=== PATIENT | female | born 1980 | race Hispanic/Latino ===

== ENCOUNTER 2018-04-29 06:31 | Day surgery (SDC) | payer BC ==
[2018-04-29 06:49] VITALS: BMI 23.9
[2018-04-29] MEDS ORDERED: Bupivacaine HCl 0.25% PF (30 ml) Inj ONE ×2 (07:09→09:02)
[2018-04-29] MEDS ORDERED: Silver Nitrate Topical - Stick ONE (07:14)
[2018-04-29] MEDS ORDERED: Chlorhexidine Gluconate 2OZ GEL TP ONE (07:14)
[2018-04-29] MEDS ORDERED: Lactated Ringer's 1,000 ML IV ONE ×4 (07:48→11:30)
[2018-04-29] MEDS ORDERED: Phenylephrine 10 mg/ml Inj ONE (08:04)
[2018-04-29] MEDS ORDERED: Lidocaine 4% (Laryng-O-Jet) Kit MM ONE (08:04)
[2018-04-29] MEDS ORDERED: Succinylcholine 200 mg/10 ml Inj IV ONE (08:04)
[2018-04-29] MEDS ORDERED: Propofol 10 mg/ml Inj (20 ML) ONE (08:04)
[2018-04-29] MEDS ORDERED: Neostigmine 1:1000 (1 mg/ml) Inj ONE ×2 (08:04→08:13)
[2018-04-29] MEDS ORDERED: Rocuronium 10 mg/ml (5 ml) ONE (08:04)
[2018-04-29 08:07] LABS: HEMOGLOBIN 12.1 g/dL (12.0-16.0); MEAN CELL VOLUME 97.1 fl (81.0-99.0); MEAN CORPUSCULAR HEMOGLOBIN 32.9 pg (27.0-31.0); MEAN CORPUSCULAR HGB CONC 33.8 g/dL (33.0-37.0); RBC 3.67 Mil/uL (3.80-5.20); RED CELL DISTRIBUTION WIDTH 12.8 % (11.5-14.5)
[2018-04-29] MEDS ORDERED: Ropivacaine 0.5% 30ML IV ONE (08:12)
[2018-04-29] MEDS ORDERED: Lidocaine 2% Jelly (Uro-Jet) ONE (08:32)
[2018-04-29] MEDS ORDERED: Midazolam 2 MG/2 ML VIAL ONE (08:37)
[2018-04-29] MEDS ORDERED: Dexamethasone 4 mg/1 ml ONE (08:57)
[2018-04-29] MEDS ORDERED: Desflurane Inhalation Anesthetic Liq (240 ml) ONE (10:03)
[2018-04-29] MEDS ORDERED: Lactated Ringer's 1,000 ML IV SCH (10:45)
--- NOTE | 2018-04-29 10:50 | PCM.ANESB5 ---
Transverse Abdominis Block - Transverse Abdominis Plane Date of Procedure: 04/29/18 Anesthesiologist: Steve Pre-Procedure Diagnosis: Endometriosis Post-Procedure Diagnosis: Same Procedure Performed: Transverse Abdominis Plane Nerve Block Left, Transverse Abdominis Plane Nerve Block Right - Procedure Transverse Abdominis Plane Nerve Block: The procedure was explained to the patient that it is for post-operative pain management and would be performed after surgery. Consent was obtained prior to surgery after a thorough discussion with the patient regarding the benefits and possible complications of transverse abdominis plane block. After the surgery had concluded and before the patient emerged from general anesthesia, time-out was held with the circulating nurse to re-confirm the appropriate block. With the patient in supine position, the ultrasound probe was placed transverse to the abdominal wall at the mid-axillary line above the iliac crest of the appropriate side. The skin, subcutaneous tissue, fat, external oblique muscle, internal oblique muscle, and the transverse abdominis muscle were identified. The general area of the block site was then prepped with Betadine three times. At this point, a # 21-gauge Stimuplex 4-inch needle was inserted posterior to and in plane with the ultrasound probe and directed anteriorly. Needle was advanced under direct ultrasound visualization until it reached the plane between the internal oblique and transverse abdominis muscles. After appropriate placement, 2mL of local anesthetic solution was injected. When the transverse abdominis plane was observed expanding in an ellipsoid way, the rest of the solution was slowly injected. A total of __30____ mL of _0.25___ % __ bupivicaine with 1:200,000 epinephrine was used for this block. The needle was then removed and sterile dressing was applied. Similarly, the same procedure was performed on the other side using the same medications. The patient had stable vital signs throughout and had no untoward complications after emergence from general anesthesia in the recovery room.
[2018-04-29] MEDS ORDERED: Oxycodone/Acetaminophen 5/325 mg Tab PO PRN (11:02)
[2018-04-29] MEDS: HYDROmorphone 0.5 mg/0.5 ml ISec IVP PRN ×3 (11:05→11:18)
[2018-04-29 13:06] VITALS: RESP 18
--- NOTE | 2018-04-29 16:52 | OP ---
PROCEDURE DATE: 04/29/2018 SURGEON: Dwayne Fernandez MD ASSISTED BY: Thong Mckeon MD from General Surgery. PREOPERATIVE DIAGNOSES: Dysmenorrhea, dyspareunia, rule out pelvic endometriosis. POSTOPERATIVE DIAGNOSIS: Pelvic endometriosis, stage III. PROCEDURE PERFORMED: Cystoscopy with bilateral ureteral catheterization and injection of IC-Green dye, diagnostic hysteroscopy, robotic da Radha operative laparoscopy, excision of endometriosis, and bilateral ureterolysis. ANESTHESIA: General endotracheal. ESTIMATED BLOOD LOSS: Minimal. COMPLICATIONS: None. SAMPLES: Multiple samples from the left pelvic sidewall, left ovarian fossa, right pelvic sidewall, posterior cervical and right uterosacral sent to Pathology. INDICATION FOR THE PROCEDURE: The patient is a 37-year-old with clinical signs of endometriosis resistant to medical therapy. She was counseled prior to the surgery with regards to the risks and benefits of the procedure and with the likelihood that the procedure to ameliorate her problems. She signed the consent and was taken to the OR. DESCRIPTION OF PROCEDURE: After adequate anesthesia was obtained, the patient was placed in the dorsal lithotomy position with extreme care to proper placement with avoiding hyperflexion or hyperextension of the hips. At this point, the patient was prepped and draped and the surgeon gowned and gloved. A time-out was taken according to the hospital policy and the procedure was started. A cystoscope was inserted directly into the bladder. The bladder appeared to be in normal size without presence of stones, tumors, or any other lesions. Both ureters were in their normal anatomical position. A 5-Emirati open-ended catheter was inserted into the left ureteral ostia all the way to the distal ureter and 5 mL of IC-Green were then injected. The catheter was then withdrawn. Attention was then on the contralateral ureter, which was catheterized with a 5-Emirati open-ended catheter and 5 mL of IC-Green were injected in the contralateral ureter. At this point, the stent and the cystoscope were removed and it was replaced by a 16-Emirati Ambriz. Attention was on the vaginal area where a speculum was placed in the vagina. The anterior lip of the cervix was grasped and the cervix was gently dilated. The hysteroscope was inserted into the cavity. The uterine cavity was visualized and it appeared to be free of tumors, lesions, or any other inflammatory changes. At this point, the attention was on the abdomen, where after re-gowning and re-gloving, an incision was made on the umbilicus utilizing open laparoscopy technique. The fascia was incised and the peritoneum was entered in a blunt fashion, a cannula was then placed, and the abdomen was insufflated. Under direct visualization, three additional ports were injected in the left upper quadrant, left mid quadrant, and the right upper quadrant. The da Radha Xi robot was then docked and the procedure was started. The findings in the pelvis were as follows: The bladder reflection was normal. The upper abdomen was normal. The liver was normal. There were implants of endometriosis in the left pelvic sidewall, posterior cervix, and right pelvic sidewall. They were all black, white type, and red type endometriosis-type implants. At this point, attention was on the left hand side where after elevating the ovary, the peritoneum was entered, the retroperitoneal space was entered and a progressive dissection was performed medializing the peritoneum and lateralizing the ureter with a full dissection, and bringing down the peritoneum all the way with the inferior level of the excision being on the left uterosacral ligament. Attention was now on the posterior cervix where a transverse incision was made on the posterior aspect of the uterus and the peritoneum was then dissected off opening the rectal vaginal space without injuring the vagina or the rectum. An area of peritoneum containing endometriosis was then excised. At this point, attention was on the right hand side of the pelvis, where after elevating the right ovary, the ureter was identified utilizing robotic technology. The peritoneum was then entered and a progressive dissection was performed, lateralizing the peritoneum and dissecting the ureter and obtaining an area of peritoneum containing endometriosis. At this point, the hemostasis appeared to be excellent. The J-Plasma device was brought in and areas with inflammatory changes, not with endometriosis, but just with inflammatory changes were then ablated, ablating areas of peritoneum, both in the posterior aspect of the uterus, cul-de-sac, and pelvic sidewalls. After this was done, it was checked for hemostasis and appeared to be excellent. The da Radha robot was undocked. The instruments were removed. The abdomen was desufflated. The incisions were closed with 0 PDS for the fascia and 4-0 Monocryl for the skin. At the end of the procedure, all tapes and instrument counts were correct. The patient tolerated the procedure well, was taken to the recovery room in excellent condition. Dwayne Fernandez MD
[2018-04-29 17:07] VITALS: BP 112/67; PULSE 42; TEMP 97.6; O2SAT 99
== END 2018-04-29 17:15 | disposition home or self-care (01) ==
LOC: H.OPSURG 06:31
PROVIDERS: ATTEND Obstetrics & Gynecology Reproductive Endocrinology
DX: N80.1 Endometriosis of ovary (principal); R10.2 Pelvic and perineal pain; N94.10 Unspecified dyspareunia; N94.6 Dysmenorrhea, unspecified; N80.3 Endometriosis of pelvic peritoneum; N80.0 Endometriosis of uterus; N80.8 Other endometriosis
CPT/HCPCS: 36415; 52332; 58558; 58662; 64488; 85027; 86850; 86900; 88305; C1729; J0131; J0330; J0690; J1100; J1170; J1885; J2001; J2250; J2370; J2405; J2704; J2710; J2765; J3010; J7030; J7040; J7120